=== PATIENT | female | born 1950 | race Caucasian/White ===

== ENCOUNTER 2017-09-20 23:06 | Inpatient (IN) | payer OTHER, MEDICARE ==
[~2017-09-20] VITALS: Ht 154.9 cm; Wt 117.4 kg
[~2017-09-20 23:06] MED LIST: CARDIZEM CD,CA180 MG PO; HYDROCHLOROTHIA25 MG PO; NAPROXEN SODIU275 MG PO; XARELTO20 MG PO
[2017-09-21] LABS: ALBUMIN 4.6 g/dL (3.2-4.8); CHLORIDE 100 mEq/L (99-109); HEMATOCRIT 45.6 % (36.0-46.0); MCH 32.5 PG (29.0-34.0); MCHC 35.1 G/DL (30.0-36.0); MCV 92.5 FL (83-99); PLATELET COUNT 159 K/uL (156-360); POTASSIUM 3.8 mEq/L (3.7-5.4); RBC DIS.WIDTH-CV 12.3 % (11.8-14.6); RBC DIS.WIDTH-SD 42.2 % (39-53); RED BLOOD COUNT 4.93 M/uL (3.80-5.20); SODIUM 140 mEq/L (136-147); WHITE BLOOD COUNT 10.1 K/uL (4.1-10.2)
[2017-09-21 00:01] LABS: MAGNESIUM 2.1 mg/dL (1.3-2.7); PTT 20.3 SEC (25-37)
[2017-09-21 00:03] LABS: GLUCOSE 109 mg/dL (70-99); TOTAL PROTEIN 8.1 g/dL (6.4-8.3)
[2017-09-21 00:05] LABS: TOTAL BILIRUBIN 0.4 mg/dL (0.0-1.0)
[2017-09-21 00:06] LABS: ALKALINE PHOSPHATASE 82 IU/L (3-129); PHOSPHORUS 4.4 mg/dL (2.5-4.9)
[2017-09-21 00:07] LABS: CREATININE 0.8 mg/dL (0.6-1.3); GFR ESTIMATE (CALCULATED) > 59 mL/min/
[2017-09-21 00:08] LABS: AST (GOT) 17 IU/L (2-34); UREA NITROGEN (BUN) 18 mg/dL (9-23)
[2017-09-21 00:09] LABS: ALT (GPT) 21 IU/L (3-49)
[2017-09-21 00:10] LABS: LIPASE 15 U/L (1.0-51.0)
[2017-09-21 00:13] LABS: TROP-I INTERPRETATION NEGATIVE; TROPONIN-I < 0.01 ng/mL (0.0-0.30)
[2017-09-21] MEDS ORDERED: GARLIC100 MG PO (01:01)
[2017-09-21] MEDS ORDERED: TURMERIC 500 M1 EACH PO (01:01)
[2017-09-21 04:30] VITALS: BP 134/82
[2017-09-21 06:05] LABS: CHLORIDE 101 MEQ/L (99-109); POTASSIUM 3.7 MEQ/L (3.7-5.4); SODIUM 140 MEQ/L (136-147)
[2017-09-21 06:06] LABS: TROP-I INTERPRETATION NEGATIVE; TROPONIN-I < 0.01 ng/mL (0.0-0.30)
[2017-09-21 06:11] LABS: CREATININE 0.8 MG/DL (0.6-1.3); GFR ESTIMATE (CALCULATED) > 59 mL/min/; GLUCOSE 109 mg/dL (70-99); UREA NITROGEN (BUN) 18 mg/dL (9-23)
[2017-09-21 07:55] LABS: THYROTROPIN (TSH) 12.4 MIU/L (0.4-5.5)
[2017-09-21 08:37] VITALS: BP 133/74
[2017-09-21 11:25] VITALS: BP 133/78
[2017-09-21 12:29] LABS: TROP-I INTERPRETATION NEGATIVE; TROPONIN-I < 0.01 ng/mL (0.0-0.30)
[2017-09-21 15:38] VITALS: BP 142/87
[2017-09-21 20:40] VITALS: BP 126/81
[2017-09-21 23:25] VITALS: BP 108/64
[2017-09-22 03:57] VITALS: BP 112/61
[2017-09-22 05:53] LABS: HEMATOCRIT 39.3 % (36.0-46.0); HEMOGLOBIN 13.3 G/DL (11.9-15.5); MCH 32.2 PG (29.0-34.0); MCHC 33.8 G/DL (30.0-36.0); MCV 95.2 FL (83-99); PLATELET COUNT 181 K/uL (156-360); RBC DIS.WIDTH-CV 12.7 % (11.8-14.6); RBC DIS.WIDTH-SD 43.8 % (39-53); RED BLOOD COUNT 4.13 M/uL (3.80-5.20); WHITE BLOOD COUNT 6.7 K/uL (4.1-10.2)
[2017-09-22 07:46] VITALS: BP 123/88
[2017-09-22 12:00] VITALS: BP 118/69
[2017-09-22] MEDS ORDERED: DIGOXIN125 MCG PO (15:20)
[2017-09-22] MEDS ORDERED: METOPROLOL SUC100 MG PO (15:20)
[2017-09-22] MEDS ORDERED: ASPIR-LOW81 MG PO (15:21)
== END 2017-09-22 16:01 | disposition home or self-care (01) | DRG 309 ==
LOC: EME 23:06 → 4EAST 09-21 03:28 → EDOF 09-21 03:28 → ENRESERV 09-21 03:31 → 4EAST 09-21 04:27
PROVIDERS: Emergency Medicine; Hospitalist
DX: I48.92 Unspecified atrial flutter (principal); I48.0 Paroxysmal atrial fibrillation; I10 Essential (primary) hypertension; E66.01 Morbid (severe) obesity due to excess calories; Z68.42 Body mass index [BMI] 45.0-49.9, adult; E11.9 Type 2 diabetes mellitus without complications; E78.5 Hyperlipidemia, unspecified; I34.0 Nonrheumatic mitral (valve) insufficiency; Z82.49 Family history of ischemic heart disease and other diseases of the circulatory system
CPT/HCPCS: 71045; 80048; 80053; 82948; 83690; 83735; 84100; 84439; 84443; 84484; 85027; 85379; 85610; 85730; 93005; 99281; 99285; J1160; J1644; J7030; J7040; J7050

== ENCOUNTER 2017-09-29 23:14 | Observation (INO) | payer OTHER, MEDICARE ==
[~2017-09-29] VITALS: Ht 154.9 cm; Wt 118.4 kg
[~2017-09-29 23:14] MED LIST changes: +ASPIR-LOW81 MG PO; +DIGOXIN125 MCG PO; +GARLIC100 MG PO; +METOPROLOL SUC100 MG PO; +TURMERIC 500 M1 EACH PO
[2017-09-30] LABS: HEMATOCRIT 35.8 % (36.0-46.0); HEMOGLOBIN 12.3 G/DL (11.9-15.5); MCH 32.9 PG (29.0-34.0); MCHC 34.4 G/DL (30.0-36.0); MCV 95.7 FL (83-99); PLATELET COUNT 190 K/uL (156-360); RBC DIS.WIDTH-CV 12.9 % (11.8-14.6); RBC DIS.WIDTH-SD 44.6 % (39-53); RED BLOOD COUNT 3.74 M/uL (3.80-5.20); WHITE BLOOD COUNT 8.8 K/uL (4.1-10.2)
[2017-09-30 00:24] LABS: ALBUMIN 3.9 G/DL (3.2-4.8); CHLORIDE 103 MEQ/L (99-109); POTASSIUM 4.6 MEQ/L (3.7-5.4); SODIUM 139 MEQ/L (136-147); TOTAL BILIRUBIN 0.8 MG/DL (0.0-1.0)
[2017-09-30 00:30] LABS: ALKALINE PHOSPHATASE 90 IU/L (3-129); ALT (GPT) 47 IU/L (3-49); AST (GOT) 53 IU/L (2-34); CREATININE 0.8 MG/DL (0.6-1.3); GFR ESTIMATE (CALCULATED) > 59 mL/min/; GLUCOSE 185 mg/dL (70-99); TOTAL PROTEIN 7.2 G/DL (6.4-8.3); UREA NITROGEN (BUN) 15 mg/dL (9-23)
[2017-09-30 04:21] LABS: APPEARANCE SL.HAZY ((CLEAR)); BILIRUBIN NEGATIVE; BLOOD NEGATIVE; COLOR YELLOW ((YELLOW)); GLUCOSE (STRIP) NEGATIVE; KETONES NEGATIVE; LEUKOCYTES NEGATIVE; NITRITE NEGATIVE; PROTEIN (STRIP) NEGATIVE; SPECIFIC GRAVITY 1.016 (1.000-1.030); UROBILINOGEN 0.2 MG/DL (0.2-1.0)
[2017-09-30 04:28] LABS: BACTERIA RARE /HPF; EPITHELIAL CELLS RARE /HPF; MUCUS TRACE /LPF; RED BLOOD CELLS 0-5 /HPF (0-5); UCUL ADDED? NO; WHITE BLOOD CELLS 0-5 /HPF (0-5)
[2017-09-30 08:28] LABS: TROP-I INTERPRETATION NEGATIVE; TROPONIN-I < 0.01 ng/mL (0.0-0.30)
[2017-09-30] MEDS ORDERED: TOPROL XL50 MG PO (10:54)
[2017-09-30] MEDS ORDERED: ELIQUIS5 MG PO (10:55)
[2017-09-30 12:10] VITALS: BP 130/63
[2017-09-30 19:30] VITALS: BP 109/54
[2017-10-01 00:19] VITALS: BP 113/59
[2017-10-01 04:11] VITALS: BP 124/66
[2017-10-01 05:32] LABS: HEMATOCRIT 33.7 % (36.0-46.0); MCH 32.4 PG (29.0-34.0); MCHC 32.6 G/DL (30.0-36.0); MCV 99.4 FL (83-99); PLATELET COUNT 160 K/uL (156-360); RBC DIS.WIDTH-CV 13.2 % (11.8-14.6); RBC DIS.WIDTH-SD 46.9 % (39-53); RED BLOOD COUNT 3.39 M/uL (3.80-5.20)
[2017-10-01 07:50] VITALS: BP 136/68
[2017-10-01 17:05] VITALS: BP 140/73
[2017-10-01 19:16] VITALS: BP 129/68
[2017-10-01 23:06] VITALS: BP 125/71
[2017-10-02 03:00] VITALS: BP 139/70
[2017-10-02 08:00] VITALS: BP 121/56
[2017-10-02 09:58] LABS: TROP-I INTERPRETATION NEGATIVE; TROPONIN-I < 0.01 ng/mL (0.0-0.30)
[2017-10-02] MEDS ORDERED: HYDROCODON-ACE1 EAC7 PO (10:36)
[2017-10-02] MEDS ORDERED: COLACE100 MG PO (10:36)
[2017-10-02] MEDS ORDERED: ELIQUIS5 MG PO (10:52)
== END 2017-10-02 13:45 | disposition home or self-care (01) ==
LOC: EME 23:14 → EDOF 09-30 09:33 → 2EAST 09-30 09:33 → EDOF 09-30 09:33 → ENRESERV 09-30 09:35 → 2EAST 09-30 11:54
PROVIDERS: Emergency Medicine; Physician Assistant Medical; Surgery
PROC: 0FT44ZZ Resection of Gallbladder, Percutaneous Endoscopic Approach (ICD-10-PCS; principal; 2017-10-01)
DX: K80.10 Calculus of gallbladder with chronic cholecystitis without obstruction (principal); E66.01 Morbid (severe) obesity due to excess calories; Z68.42 Body mass index [BMI] 45.0-49.9, adult; K76.0 Fatty (change of) liver, not elsewhere classified; I48.92 Unspecified atrial flutter; I48.91 Unspecified atrial fibrillation; E11.9 Type 2 diabetes mellitus without complications; I10 Essential (primary) hypertension; E78.5 Hyperlipidemia, unspecified; M79.89 Other specified soft tissue disorders; Z82.49 Family history of ischemic heart disease and other diseases of the circulatory system; Z79.01 Long term (current) use of anticoagulants; Z98.890 Other specified postprocedural states; Z88.8 Allergy status to other drugs, medicaments and biological substances
CPT/HCPCS: 74177; 76705; 80053; 81003; 82948; 83690; 84484; 85027; 87502; 88304; 93005; 94640; 94799; 99281; 99285; G0378; J0131; J1100; J1170; J2250; J2405; J2543; J2710; J3010; J3480; J7030; J7050; S0028; S0074